=== PATIENT | female | born 1945 | race Caucasian/White ===

== ENCOUNTER 2016-10-29 21:42 | Inpatient (IN) ==
--- NOTE | 2016-10-29 22:22 | Diag Imaging Result Doc PS360 ---
EXAM: TRAUMA SHOULDER LEFT HISTORY: fall, deformity TECHNIQUE: Two views COMPARISON: None. FINDINGS: There is an oblique fracture through the proximal humeral shaft adjacent to the neck. There is dislocation and angulation at the fracture site. Angle measures at least 45 degrees. Humeral head remains in the glenoid. No separation at the acromioclavicular joint. IMPRESSION: Fracture to the proximal humeral shaft with marked angulation. Electronically signed by Sly Zamorano 10/29/2016 10:19 PM
--- NOTE | 2016-10-29 22:35 | Diag Imaging Result Doc PS360 ---
EXAM : HEAD/C-SPINE W/O CONTRAST HISTORY: fall, shoulder deformity, head injury TECHNIQUE: CT brain without. CT cervical spine without. Dose reduction protocol. FINDINGS: Head: No parenchymal hemorrhage. No epidural or subdural hematoma. No subarachnoid hemorrhage. No mass identified on this noncontrasted exam. No hydrocephalus. No sinus opacification. Cervical spine: There is good alignment to the cervical spine. No precervical soft tissue swelling. No subluxation. No fracture. Prominent degenerative bone spurring in the lower cervical spine. Smaller degenerative bone spurring in the upper cervical spine. Mild scoliosis. IMPRESSION: Head: No hemorrhage. No injury. Cervical spine: No acute fracture. Electronically signed by Sly Zamorano 10/29/2016 10:33 PM
[2016-10-29] MEDS ORDERED: ZOFRAN IV ONE (23:18)
[2016-10-29] MEDS ORDERED: DILAUDID IV ONE (23:18)
--- NOTE | 2016-10-29 23:23 | PROVIDER DOCUMENTATION ---
HPI-Musculoskeletal Pain/Inj - GENERAL Chief Complaint: Fall Stated Complaint: fall shoulder pain Time Seen by Provider: 10/29/16 21:50 Source: patient, EMS - HX OF PRESENT ILLNESS-MUSKULOSKELTAL Nature of Presenting Problem: This pt presents today c complaints of left sided shoulder pain s/p fall. She reports that she was standing up on chair trying to reach something when she slipped and fell on her arm. No head injury. Pt does not take blood thinner. No loss of motor function or sensation. There is deformity noted. No open fx noted. Quality of Pain: reports: throbbing Severity in ED: severe Onset/Duration: just prior to arrival Timing: still present Modifying Factors: improves with: movement, palpation Any recent injury?: Yes Locality of Occurance: Home Similar Symptoms Previously?: No Recently seen or treated by another doctor?: No Review of Systems - Adult - REVIEW OF SYSTEMS - ADULT Constitutional: reports: no symptoms reported. denies: chills, fever Eyes: reports: no symptoms reported. denies: discharge, dry eyes Ears, Nose, Mouth & Throat: reports: no symptoms reported. denies: ear discharge, ear pain Cardiovascular: reports: no symptoms reported. denies: chest pain, edema Respiratory: reports: no symptoms reported. denies: chronic cough, cough Gastrointestinal: reports: no symptoms reported. denies: abdominal pain, hematemesis Genitourinary: reports: no symptoms reported. denies: dysuria, discharge Musculoskeletal: reports: see HPI, bone pain, joint pain. denies: muscle weakness, neck pain Integumentary: reports: no symptoms reported. denies: hives, hair loss Neurological: reports: no symptoms reported. denies: ataxia, dizziness/vertigo Psychiatric: reports: no symptoms reported. denies: anxiety, anti-depressant use Endocrine: reports: no symptoms reported Hematologic/Lymphatic: reports: no symptoms reported Allergic/Immunologic: reports: no symptoms reported All Other Systems: Reviewed and Negative Past History - Adult - PAST MEDICAL HISTORY-ADULT Review of Records: reports: Old Records Reviewed, Nursing Assessment Review, Medications Reviewed, Social history reviewed & non-contributory. Major Childhood Illnesses: reports: denies history Cardiovascular: reports: denies history Respiratory: reports: denies history Gastrointestinal: reports: denies history Obstetrical/Gynecological: reports: denies history Genitourinary: reports: denies history Musculoskeletal: reports: denies history Neurological: reports: denies history Endocrine/Immune: reports: denies history Other Conditions: reports: denies history - IMMUNIZATION STATUS Childhood Immunizations: See Nurse Assessment Flu Vaccine: See Nurse Assessment - FAMILY HISTORY Family History: reviewed, not pertinent Physical Exam-Injury Related - Physical Exam-Injury Related Initial Vital Signs Reviewed: Yes General Appearance: appears well, alert, no apparent distress Eyes: PERRL/EOMI, pink conjunctivae Head, Ears, Nose, Mouth & Throat: normocephalic/atraumatic, moist mucous membranes, normal ENT inspection Neck: non-tender, full range of motion, supple, normal inspection. negative: pain with axial compression, decresed ROM, limited range of motion, muscle spasm , pain on movement Respiratory: chest non-tender, lungs clear, normal breath sounds, no pleuratic chest pain, no respiratory distress, no accessory muscle use. negative: respiratory distress, decreased breath sounds, accessory muscle use, crackles, rales, rhonchi, stridor, wheezing Cardiovascular: normal peripheral pulses, regular rate, rhythm Peripheral Pulses: radial (R): 2+, radial (L): 2+ Abdominal Exam: normal bowel sounds, non tender, soft Back Exam: normal inspection, no CVA tenderness, no vertebral tenderness Extremity: deformity, swelling, tenderness. negative: pulse deficit, pedal edema Integumentary: normal color, warm/dry Neurologic: babysitter II-XII nml as tested, no motor/sensory deficits. negative: facial droop, focal weakness, motor weakness, sensory deficit Psych/Mental Status: normal mood/affect, normal thought content, normal thought process, oriented x 3 - Glascow Coma Score Best Eye Response (Heidi): (4) open spontaneously Best Verbal Response ([place]): (5) oriented Best Motor Response (Heidi): (6) obeys commands Heidi Total: 15 Progress - PLAN OF CARE/RESULTS Progress/Plan/Lab Results: Vital Signs - 8 hr 10/29/16 21:50 Temperature 97.8 F Pulse Rate 80 Respiratory Rate 18 Blood Pressure 202/96 O2 Sat by Pulse Oximetry 100 Orders Category Date Time Status Arm Sling DIRECTED Care 10/29/16 23:18 Ordered HEAD/C-SPINE W/O CONTRAST [CT] Stat Exams 10/29/16 21:50 Completed TRAUMA SHOULDER LEFT [RAD] Stat Exams 10/29/16 21:50 Completed CBC WITH ELECTRONIC DIFF [HEME] Stat Lab 10/29/16 23:17 Uncollected COMPREHENSIVE METABOLIC PANEL [CHEM] Stat Lab 10/29/16 23:17 Uncollected PROTIME WITH INR [COAG] Stat Lab 10/29/16 23:17 Ordered PTT [COAG] Stat Lab 10/29/16 23:17 Ordered TYPE & SCREEN [BBK] Stat Lab 10/29/16 23:18 Uncollected Hydromorphone [Dilaudid] Med 10/29/16 23:18 Once 1 mg IV NOW ONE Ondansetron [Zofran] Med 10/29/16 23:18 Once 4 mg IV NOW ONE - XRAY 1 XRAY: Left XRAY Study: Shoulder XRAY Interpretation: proximal humerus fx c moderate angulation - CT/MRI 1 CT Study: Cervical Spine, Head CT Results: nad - CONSULTS/PCP/HOSPITALIST Notification #1 *Consult/PCP/Hospitalist*: Dr. Hi Time Discussed: 22:20 Consult Disposition: F/U in office (Tomorrow morning) Departure - Departure Date of Disposition Decision: 10/29/16 Time of Disposition Decision: 23:23 DIAGNOSIS: Proximal humerus fracture Qualifiers: Encounter type: initial encounter Fracture type: closed Fracture morphology: other fracture Fracture alignment: displaced Laterality: left Qualified Code(s) : S42.292A - Other displaced fracture of upper end of left humerus, initial encounter for closed fracture Disposition: HOME 01 Certified Medical Emergency: Emergent Condition: Good Additional Freetext Instructions: Take medication as prescribed. As we discussed, call Dr. Hi's office at 8AM in the morning for your appointment time. Please return to the ER for any new or worsening symptoms. ED Follow Up Instructions: You have been treated by a care provider in the Emergency Department. These instructions are being provided to you so you can have an understanding of how to care for yourself upon discharge. Upon discharge from the Emergency Department, you are responsible for making arrangements for follow-up care by a physician of your choice. Take all prescribed medications as directed. Return to the Emergency Department immediately for any new or worsening symptoms. You may call the Physician Referral phone number at [phone] to obtain a list of Physicians who are taking new patients. Prescriptions: Hydrocodone/APAP 7.5 mg/325 mg [[place]-7.5] 1 each PO Q6H PRN PRN #12 tablet PRN Reason: Pain Ondansetron Odt [Zofran 4 mg Odt] 4 mg PO Q6H PRN PRN #20 tablet PRN Reason: Nausea Referrals and Follow-Ups: Radha Newman MD [Primary Care Provider] - Greg Hi MD [ACTIVE STAFF PHYSICIAN] - - Critical Care Note This patient required my direct & personal management of CC.: No Attestation - Physician/ ZAID Attestation Patient care was provided by Advanced Practice Provider:: Yes Advanced Practice Provider:: Lavell Treadwell Advanced Practice Provider documentation review:: The Mid-level provider documentation, treatment plan and medical decision making was reviewed by the physician who agrees with all treatment and medical decision making by the MLP.
[2016-10-29 23:42] LABS: MANUAL DIFF NEEDED? NO
[2016-10-29 23:45] LABS: BASO% 0.1 % (0.0-0.8); EOS# 0.05 X1000 (0.0-0.7); EOS% 0.4 % (0.0-10.0); HEMATOCRIT 35.5 % (37.0-47.0); HEMOGLOBIN 12.4 g/dL (12.0-16.0); IMM GRAN# 0.02 X1000 (0.0-0.04); IMM GRAN% 0.2 % (0.0-0.5); LYMPH% 14.9 % (20.5-51.1); MCH 30.2 PG (27-31); MCHC 34.9 g/dL (33-37); MCV 86.6 FL (81-99); MONO# 0.71 X1000 (0.11-0.59); MONO% 5.9 % (1.7-9.3); MPV 10.5 FL (7.4-10.4); NEUT% 78.5 % (42.2-75.2); PLT 266 X1000 (130-400)
[2016-10-29 23:59] LABS: INR 1.02; PROTIME 10.7 Seconds (9.2-11.7); PTT 26.1 Seconds (22.0-36.0)
[2016-10-30 00:10] LABS: ALBUMIN 4.1 g/dL (3.5-5.0); CALCIUM 9.7 mg/dL (8.8-10.2); POTASSIUM 3.7 mmol/L (3.5-5.1); TOTAL BILIRUBIN 0.52 mg/dL (0.20-1.00); TOTAL PROTEIN 6.8 g/dL (6.3-8.3)
[2016-10-30] MEDS: DILAUDID IV PRN ×6 (01:25→20:41)
[2016-10-30] MEDS ORDERED: ZOFRAN IV PRN (01:30)
[2016-10-30] MEDS ORDERED: NS 1,000 ML IV SCH (02:52)
[2016-10-30] MEDS ORDERED: TYLENOL PO PRN (02:52)
[2016-10-30 06:28] LABS: BASO% 0.1 % (0.0-0.8); HEMATOCRIT 36.4 % (37.0-47.0); HEMOGLOBIN 12.5 g/dL (12.0-16.0); IMM GRAN# 0.02 X1000 (0.0-0.04); IMM GRAN% 0.2 % (0.0-0.5); LYMPH# 0.91 X1000 (1.2-3.4); LYMPH% 7.8 % (20.5-51.1); MANUAL DIFF NEEDED? NO; MCH 30.3 PG (27-31); MCHC 34.3 g/dL (33-37); MCV 88.3 FL (81-99); MONO# 0.41 X1000 (0.11-0.59); MONO% 3.5 % (1.7-9.3); MPV 10.9 FL (7.4-10.4); NEUT% 88.4 % (42.2-75.2); PLT 297 X1000 (130-400); RBC 4.12 XMIL (4.2-5.4)
[2016-10-30 06:38] LABS: HEMOGLOBIN A1C 5.2 % (4.8-6.0)
--- NOTE | 2016-10-30 07:34 | HISTORY AND PHYSICAL ---
PRIMARY CARE PROVIDER: Dr. Riley Newman. CHIEF COMPLAINT: Fall and left shoulder pain. HISTORY OF PRESENT ILLNESS: The patient is a 71-year-old, female who stated that tonight, just prior to arrival, that she was in the kitchen. She had pulled a chair over to the counter and was going to step up in the chair to reach a baking sheet in a top cabinet. She reports that she got 1 foot up on the chair when she fell backwards. She says mostly she fell on her back, though did hit her head and hit her left shoulder. The patient states that she did lay on the floor for approximately an hour until her did arrive to help her. She denied any loss of consciousness and other than hitting her back as well as her head and shoulder, she denies any other pain or injuries. She did arrive to the ER per EMS. She was given morphine 4 mg IV prior to arrival. Upon evaluation in the ER, her left shoulder x-ray showed an oblique fracture through the proximal humeral shaft adjacent to the neck. There is dislocation and angulation at the fracture site. We did do a head CT, as well as C-spine noncontrast which showed no hemorrhage or injury, and no fracture on the C-spine. Dr. Hi with orthopedic surgery was consulted by the ER. Initially, there were plans to discharge this patient home to follow up with him in his office tomorrow, though at this time the patient is having quite a bit of pain and is not able to get around well due to her fracture. At this time, we have decided to go ahead and admit her for a consult with orthopedic surgery in the morning and possible surgical repair of her left humeral fracture. REVIEW OF SYSTEMS: A 12 point review of systems was conducted with the patient. All were negative except for pertinent positives mentioned above in the HPI. PAST MEDICAL HISTORY: 1. Hypertension. 2. Anxiety. PAST SURGICAL HISTORY: The patient denies any previous surgeries. SOCIAL HISTORY: The patient currently lives at home with her and son. 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 She denies any past or present alcohol, tobacco, or illicit drug use. FAMILY HISTORY: Her mother at age 96 secondary to a stroke. Her father at age 80 from a myocardial infarction. She does have a brother who has a history of cardiac stents, though her sister, who is approximately 6-7 years older than her, has no known medical problems. ALLERGIES: She reports allergies to penicillin. HOME MEDICATIONS: 1. Lisinopril 12.5 mg p.o. daily. 2. Prozac 20 mg p.o. daily. 3. Aspirin 81 mg p.o. daily. DIAGNOSTIC DATA/LABORATORY RESULTS: White blood cell count 12.07, hemoglobin 12.4, hematocrit 35.5, platelet count is 266,000. PT 10.7, INR 1.02, PTT is 26.2. Sodium 134, potassium 3.7, chloride 91, bicarb 23, BUN 16, creatinine 1, GFR is 55, glucose 145, calcium 9.7. Liver function tests are within normal limits. A left shoulder x-ray showed an oblique fracture through the proximal humeral shaft adjacent to the neck. There is dislocation and angulation at the fracture site. Angle measures at least 45 degrees, though the humeral head remains in the glenoid and there is no separation at the acromioclavicular joint. CT of the head and cervical spine showed on the head CT, no hemorrhage, no injury. On the cervical spine, there was no acute fracture noted. PHYSICAL EXAMINATION: VITAL SIGNS: Temperature is 97.8, heart rate is 78, respirations 22, blood pressure 159/90, oxygen saturation is 100% on room air. GENERAL: The patient is a very pleasant, 71-year-old, female who was resting comfortably on the ER stretcher. She was awake, alert, and able to answer all questions appropriately. At the time of the examination, she reported that she still was having some pain in her left shoulder at about a 6/10. HEENT: Head is atraumatic, normocephalic. Pupils are equal, round, reactive to light, were 3 mm bilaterally and brisk. Oral mucosa is moist. Oropharynx is clear. NECK: Supple. Trachea midline. CARDIOVASCULAR: Patient has normal S1, S2. No murmurs, gallops, or rubs appreciated, with a regular rate and rhythm. PULMONARY: Patient has symmetrical chest expansion bilaterally. Lung sounds are clear to auscultation in bilateral full echeverria. ABDOMEN: Soft, nontender, nondistended. Bowel sounds were present. EXTREMITIES: The patient does have pain and tenderness to the left shoulder area. At this time, she does have a shoulder immobilizer, arm sling noted to her left arm. She does have a positive radial pulse as well as good capillary refill of less than 3 seconds in her left wrist and hand distal to her injury. All other extremities are within normal limits. Pulse, motor, and sensory are intact in all extremities as well. Pedal pulses are 3+ bilaterally. INTEGUMENTARY: The patient's skin is pink, warm, dry, and intact. No lesions or sores noted. NEUROLOGICAL: Patient is alert and oriented x3. Cranial nerves 2-12 are grossly intact. ASSESSMENT AND PLAN: 1. Left proximal humerus fracture. For this, we have placed the patient in a left arm sling. She is still experiencing some pain, though is mostly comfortable at this time. We will continue pain control with 1 mg of Dilaudid intravenous every 3 hours. We have placed a consult with Dr. Hi with orthopedic surgery. We will await his evaluation and further recommendations. She will remain nothing per oral at this time for a possible surgical repair in the morning. 2. Fall. As previously mentioned, the patient was stepping up on a chair and lost her balance, and fell back. At this time, other than her left humerus fracture, she has no other acute injuries. CT of the head and cervical spine was negative. 3. Hypertension. We will continue the patient's lisinopril. 4. Deep vein thrombosis prophylaxis will be provided with sequential compression devices at this time. We will hold any anticoagulation since she is a possible surgical patient. 5. She will be placed on the medical floor with telemetry. She will have vital signs every 8 hours. We will do activity up with assistance. She will remain nothing per oral. We will repeat a CBC and BMP in the morning as well as an EKG. Further orders and recommendations pending hospital course, diagnostic studies, and physician evaluation. Dictated by MICHAEL Pascal for Gena Dent MD Seen,examined and discussed with SUPPLY CLERK plan of care. cc: MD Jeffy Sloan MD MTDD
[2016-10-30] MEDS: PROZAC PO SCH (08:49)
[2016-10-30] MEDS: PRINIVIL PO SCH (08:52)
--- NOTE | 2016-10-30 19:31 | CONSULTATION ---
DATE OF CONSULTATION: 10/30/2016 HISTORY OF PRESENT ILLNESS: Ms Ferrera 71-year-old female who presented to the emergency department yesterday for evaluation of this left upper extremity after a fall. She was up in a chair and unfortunately fell and ended up landing really on her shoulder and her back. She was taken to the ER, showed a proximal humerus fracture. She was admitted and we were consulted for evaluation. Most of her pain is in that left shoulder. It is worse with any movement. It does feel better when she keeps it at her side. No numbness or tingling. PAST MEDICAL HISTORY: Hypertension, anxiety. PAST SURGICAL HISTORY: None. SOCIAL HISTORY: She lives with her and her son. She denies any tobacco use. ALLERGIES: Penicillin. HOME MEDICATIONS: Lisinopril, Prozac and aspirin. FAMILY HISTORY: Positive for heart problems. REVIEW OF SYSTEMS: Positive for this left shoulder pain. All other systems are essentially negative. PHYSICAL EXAMINATION: General: Well-developed, well-nourished female in no acute distress. Head/neck: Normocephalic, atraumatic. Respirations: Nonlabored. Cardiovascular: Regular rate. Abdomen: Nondistended. Extremities: Left upper extremity exam. She has a lot of swelling to that left upper extremity. She is tender to palpation to the shoulder. Not really tender to palpation to the elbow. All her hand intrinsics are intact. She has 2+ radial pulse and good sensation light touch to all the fingers. She can flex and extend at the wrist as well. She has good sensation light touch over the deltoid. RADIOGRAPHS: Two view left shoulder shows a displaced proximal humerus fracture right below the neck extended really more into the shaft. Shoulder looks reduced. ASSESSMENT: Left proximal humerus fracture. PLAN: I discussed with Ms. Ferrera and her about treatment options here. It is more little bit of a shaft fracture and it is very displaced. We went over nonoperative and operative intervention. Nonoperative would be sling for now and then when she comes to clinic we will transfer her to a fracture brace with some weights to help pull that arm down and get in better position. 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 Operative treatment options would be the reverse total shoulder or open reduction internal fixation really with a intramedullary device or plate fixation. After I went over everything with her, she elected for nonoperative treatment. So put her in a sling today. She will be nonweightbearing left upper extremity. I will see her in about a week in clinic and will move to a fracture brace that time. From orthopedic standpoint I am okay with her being discharged and like I said she will need to follow with me in 1 week. cc: MD Jeffy Romero MD
--- NOTE | 2016-10-30 21:30 | PROGRESS NOTE ---
DATE: 10/30/2016 SUBJECTIVE: Patient is in a lot of pain. Interval history was reviewed. A 71-year-old white female, admitted to the hospital last night by the hospitalist after a fall at home, sustained an injury to the left shoulder with proximal humeral fracture with displacement. Pain is not adequately controlled. The patient was on sling. Patient was seen by Dr. Hi. PAST MEDICAL HISTORY: Reviewed. PAST SURGICAL HISTORY: Reviewed. REVIEW OF SYSTEMS: HEENT: No headache. No dizziness. No earache. No sore throat. Cardiopulmonary: No chest pain, shortness of breath, PND, orthopnea. GI: No nausea, vomiting, abdominal pain. : No history of hesitancy, frequency. No swelling of legs. No joint pain. Neurologic: No focal symptoms or weakness. OBJECTIVE: Vital signs: She is afebrile. Pulse is 87, blood pressure is 160/70, 97% on room air. Input and output: Even. HEENT: Within normal limits. Neck: Supple. Chest: Clear to auscultation. Heart: Sounds are regular. Abdomen: Belly is soft, nontender. Good bowel sounds. No peripheral edema, cyanosis. Neurologic: No obvious neurological deficits. Left leg is in sling with a lot of swelling and pain. INVESTIGATIONS: White cell count 11, hematocrit 36, platelets 297,000. PT/INR is normal. SMA7 is normal. A1c 5.2. LFTs are normal. Left shoulder x-ray: Proximal humeral fracture with marked angulation. CT head and cervical spine: No acute injury. No acute fracture. ASSESSMENT AND PLAN: 1. Left shoulder proximal fracture. Continue on sling. Pain control. Orthopedics consult. 2. Depression. On Prozac. 3. Hypertension. On lisinopril. Continue icing. Check the labs in the morning. We will discuss with Dr. Hi about the plan. LEVEL OF DOCUMENTATION: 35 minutes. cc: Jeffy Newman MD
[2016-10-31] MEDS: DILAUDID IV PRN (06:08)
[2016-10-31 06:51] LABS: POTASSIUM 3.9 mmol/L (3.5-5.1)
--- NOTE | 2016-10-31 07:08 | Diag Imaging Result Doc PS360 ---
EXAM: CHEST-PORTABLE HISTORY: Left Proximal Humerous Fx, Poss. Surgical Pt. TECHNIQUE: Portable COMPARISON: None. FINDINGS: The lungs are well expanded. The heart is not enlarged. The vessels are not distended. No pneumonia. Minimal atelectasis in the left base. No pleural effusions identified. There is a fracture to the proximal left humerus with displacement. IMPRESSION: Left basilar atelectasis. Electronically signed by Sly Zamorano 10/31/2016 7:06 AM
[2016-10-31 07:42] VITALS: BP 113/54
--- NOTE | 2016-10-31 08:19 | PROGRESS NOTE ---
DATE: 10/31/2016 SUBJECTIVE: Ms. Ferrera is lying in bed this morning. Overall, pain is controlled. OBJECTIVE: Left upper extremity exam: She is still swollen in the left upper extremity. All her hand intrinsics remain intact though. Good sensation to light touch to all the fingers. She is in a sling. No skin ulcerations or abrasions seen. ASSESSMENT: Left proximal humerus fracture. PLAN: As I discussed with Ms. Ferrera yesterday, we are going to allow time for nonoperative treatment, and hopefully this proximal humerus fracture will begin to heal in. I will see her in a week in clinic, and will go to a fracture brace at that time. From an Orthopedic standpoint, I am okay with her being discharged, and she will need to see me in 1 week. cc: MD Jeffy Romero MD
[2016-10-31] MEDS: PROZAC PO SCH (08:59)
[2016-10-31] MEDS: PRINIVIL PO SCH (08:59)
--- NOTE | 2016-11-01 10:25 | DISCHARGE SUMMARY ---
ADMISSION DATE: 10/30/2016 DISCHARGE DATE: 10/31/2016 DISCHARGING DIAGNOSIS: Left proximal humeral fracture. SECONDARY DIAGNOSES: 1. Hypertension. 2. Hyperlipidemia. 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 BRIEF HISTORY: Please see the H and P that was done by hospitalist. In brief, she is a 71-year- old white female, who was admitted to the hospital after a fall sustaining injury to the left shoulder. She has a significant proximal femoral fracture with angulation. She has substantial pain and swelling, unable to go home. She was given pain medicines, icing and seen. Ortho consult was obtained. In the beginning she was taken to the operating room. However, because of substantial swelling, Dr. Hi after looking at the CT has been offered to reduce the swelling and go home and will be evaluated next week in his office. Patient is able to ambulate and pain is adequately controlled. LABS/X-RAYS: Chest x-ray within normal limits. Fracture of the proximal left humeral bone with displacement. CT head and CT cervical spine is negative. Last CBC was with white count 11, hematocrit 36, platelet 297. SMA 7: His creatinine is 1.3. LFTs were normal. DISCHARGE INSTRUCTIONS: 1. Prozac 20 daily. 2. Aspirin 81 daily. 3. Lisinopril 10/12.5 daily. 4. [place] 7.5 q. 6 hours p.r.n. pain. 5. Zofran as needed for nausea. 6. Follow up with Dr. Hi next week as well as in my office. cc: MD Greg Wong MD
== END 2016-10-31 10:46 | disposition home or self-care (01) ==
LOC: ED 21:42 → SUATTDRO 10-30 02:01 → 4N 10-30 02:01
PROVIDERS: ADMIT Internal Medicine; ATTEND Internal Medicine